=== PATIENT | female | born 1990 | race American Indian/Alaskan Native ===

== ENCOUNTER 2021-12-31 17:34 | Emergency (ER) | payer SELFPAY ==
--- NOTE | 2021-12-31 19:49 | Emergency Department Report ---
Suture/Staple Removal - [facility] Chief Complaint: Laceration/Recheck/Suture Stated Complaint: STITCHES REMOVAL Time Seen by Provider: 12/31/21 19:31 When Sutures or [place] Placed: 8-10 Days Ago Wound Location: Left abdomen ED Review of Systems ROS: Stated complaint: STITCHES REMOVAL Other details as noted in HPI Comment: All other systems reviewed and negative Constitutional: no symptoms reported ED Past Medical Hx - Past Medical History Previous Medical History?: No - Surgical History Past Surgical History?: No Suture Removal Exam - Exam General: Vital signs noted. No distress. Alert and acting appropriately. Wound: No Pathologic Erythema, No Tenderness, No Drainage, No Pus, No Wound Dehiscence Other Systems: All other systems reviewed and are unremarkable. Wounds have healed properly, skin well adhered, no swelling erythema no tenderness no drainage. States she is successively removed a total of 3. No foreign body left. ED Course Vital Signs 12/31/21 18:08 Temperature 98.5 F Pulse Rate 78 Respiratory 18 Rate Blood Pressure 135/61 [Left] O2 Sat by Pulse 99 Oximetry Critical care attestation.: If time is entered above; I have spent that time in minutes in the direct care of this critically ill patient, excluding procedure time. ED Disposition Clinical Impression: Visit for suture removal Disposition: HOME / SELF CARE / HOMELESS Is pt being admited?: No Does the pt Need Aspirin: No Condition: Stable Instructions: Wound Closure Removal, Care After
[2021-12-31 21:28] VITALS: BP 126/70
== END 2021-12-31 21:28 | disposition home or self-care (01) ==
LOC: ED 17:34
DX: S31.119D Laceration without foreign body of abdominal wall, unspecified quadrant without penetration into peritoneal cavity, subsequent encounter (principal); X58.XXXD Exposure to other specified factors, subsequent encounter; Z48.02 Encounter for removal of sutures